=== PATIENT | male | born 1990 | race Caucasian/White ===

== ENCOUNTER 2016-07-01 12:28 | Emergency (ER) | payer OTHER ==
[~2016-07-01] VITALS: Ht 185.4 cm; Wt 104.0 kg
[2016-07-01] MEDS ORDERED: IBUPROFEN 800 MG TABLET PO ONE (13:30)
[2016-07-01 14:00] VITALS: BP 151/100
== END 2016-07-01 14:25 | disposition home or self-care (01) ==
LOC: EMS 12:36
DX: S62.613A Displaced fracture of proximal phalanx of left middle finger, initial encounter for closed fracture (principal); M79.645 Pain in left finger(s); Z88.0 Allergy status to penicillin; W51.XXXA Accidental striking against or bumped into by another person, initial encounter; Y93.71 Activity, boxing; Y92.9 Unspecified place or not applicable; Y99.9 Unspecified external cause status
CPT/HCPCS: 99284

== ENCOUNTER 2016-12-15 22:38 | Emergency (ER) | payer OTHER ==
[~2016-12-15] VITALS: Ht 185.4 cm; Wt 104.5 kg
[2016-12-15 23:03] VITALS: BP 138/87
[2016-12-15] MEDS ORDERED: IBUP-1547 PO (23:14)
[2016-12-16] MEDS ORDERED: DiphenhydrAMINE HCL 50 MG CAPSULE PO ONE (01:30)
== END 2016-12-16 01:52 | disposition home or self-care (01) ==
LOC: EMS 22:46
DX: T78.40XA Allergy, unspecified, initial encounter (principal); Z88.0 Allergy status to penicillin; Y92.89 Other specified places as the place of occurrence of the external cause
CPT/HCPCS: 99282

== ENCOUNTER 2016-12-23 10:28 | Emergency (ER) | payer OTHER ==
[~2016-12-23] VITALS: Ht 185.4 cm; Wt 109.1 kg
[~2016-12-23 10:28] MED LIST: IBUP-1547 PO
[2016-12-23] MEDS ORDERED: HYDROCODONE/ACETAMINOPHEN 5-325 MG TABLET PO ONE (12:45)
[2016-12-23 13:17] VITALS: BP 130/85
== END 2016-12-23 14:00 | disposition home or self-care (01) ==
LOC: EMS 10:34
DX: S86.012A Strain of left Achilles tendon, initial encounter (principal); Z88.0 Allergy status to penicillin; Z88.6 Allergy status to analgesic agent; X58.XXXA Exposure to other specified factors, initial encounter; Y93.66 Activity, soccer; Y92.89 Other specified places as the place of occurrence of the external cause; Y99.8 Other external cause status
CPT/HCPCS: 29515; 99284